=== PATIENT | female | born 1990 | race Caucasian/White ===

== ENCOUNTER 2020-07-24 10:05 | Day surgery (SDC) | payer OTHER ==
[~2020-07-24] VITALS: Ht 165.1 cm; Wt 67.9 kg
[~2020-07-24 10:05] MED LIST: ACETAMINOPHEN *IV* 1,000 MG IV ONE; LR 1,000 ML IV ONE; SCOPOLAMINE 1MG TRANSDERMAL PATCH TOP ONE
[2020-07-24 10:40] LABS: HEMATOCRIT 38.2 % (36.0-47.0); HEMOGLOBIN 12.8 g/dl (12.0-15.5); MEAN CORPUSCULAR HEMOGLOBIN 31.4 pg (27.0-33.0); MEAN CORPUSCULAR HGB CONC 33.5 g/dl (32.0-36.5); MEAN CORPUSCULAR VOLUME 93.6 fl (80.0-96.0); PLATELET COUNT, AUTOMATED 195 10^3/uL (150-450); RED BLOOD COUNT 4.08 10^6/uL (4.00-5.40); WHITE BLOOD COUNT 3.5 10^3/uL (4.0-10.0)
[2020-07-24] MEDS ORDERED: propofoL 200 MG/20 ML VIAL As Ordered ONE (10:44)
[2020-07-24] MEDS ORDERED: fentaNYL 100 MCG/2 ML INJECTION (J3010) As Ordered ONE (10:44)
[2020-07-24] MEDS ORDERED: MIDAZOLAM INJ 2MG/2ML VIAL (J2250 PER 1MG) As Ordered ONE (10:45)
[2020-07-24] MEDS ORDERED: LIDOCAINE 2% 100MG/5ML SDV (FOR ANES.) As Ordered ONE (10:45)
[2020-07-24 10:59] LABS: ALBUMIN 3.9 GM/DL (3.2-5.2); ALT/SGPT 12 U/L (12-78); BILIRUBIN,TOTAL 0.7 MG/DL (0.2-1.0); BLOOD UREA NITROGEN 7 MG/DL (7-18); CALCIUM LEVEL 8.6 MG/DL (8.5-10.1); CARBON DIOXIDE LEVEL 28 MEQ/L (21-32); CHLORIDE LEVEL 110 MEQ/L (98-107); CREATININE FOR GFR 0.82 MG/DL (0.55-1.30); GLOMERULAR FILTRATION RATE > 60.0 (>60); GLUCOSE, FASTING 89 MG/DL (70-100); SODIUM LEVEL 142 MEQ/L (136-145)
[2020-07-24] MEDS ORDERED: ONDANSETRON 4MG/2ML VIAL As Ordered ONE (11:10)
[2020-07-24] MEDS ORDERED: LIDOCAINE 1% MDV 20ML VIAL As Ordered ONE (11:32)
[2020-07-24] MEDS ORDERED: GLYCOPYRROLATE INJ 0.2 MG/ML 2 ML VIAL As Ordered ONE (11:33)
[2020-07-24] MEDS ORDERED: ATROPINE SULF 0.4 MG/ML 1ML VIAL (J0461) As Ordered ONE (11:48)
[2020-07-24] MEDS ORDERED: SILVER NITRATE APPLICATOR As Ordered ONE (12:00)
--- NOTE | 2020-07-24 12:34 | ROOPDOC ---
[facility] Report Of Operation Report of Operation DATE OF PROCEDURE: 07/24/20 PREPROCEDURE DIAGNOSES: primary infertility, endometrial polyp POSTPROCEDURE DIAGNOSES: primary infertility, endometrial polyp PROCEDURE: hysteroscopic polypectomy SURGEON: Jean-Pierre Suarez DO SHOE FITTER: none ANESTHESIA: Sedation, local ESTIMATED BLOOD LOSS: Approximately 5 mL. COMPLICATIONS: none REMARKS: none PROCEDURE NOTE: The risks, benefits and alternatives of the procedure were discussed and written consent was obtained. The patient was taken to the OR where she was sedated and positioned in low lithotomy in the yellow fins with her arms out. The vagina and perineum were prepped and draped in a sterile fashion. A final time out was performed. The bladder was drained and an operative speculum was placed in the vagina. The anterior lip of the cervix was grasped with a single tooth tenaculum. 5cc of lidocaine were injected on each side at approx 4 and 7 o clock at the cervicovaginal junction to achieve a cervical block. The uterus was sounded to 8cm. The cervix was then dilation to 15F with hanks dilators. The myosure scope was then introduced to the fundus. Proliferative endometrium was noted. The right tubal ostea was clearly visualized. The left tubal ostea was obstructed by a polyp with a wide base emerging from the left lateral uterine wall. Using the myosure light the polyp was removed. While the ostea indentation could be seen post-removal, the area appeared scarred. The surgical site was noted to be hemostatic. The polypoid tissue was sent for pathology. The myosure and single tooth tenaculum were removed. The puncture site was hemostatic with the aid of silver nitrate. The operative speculum was removed. A vaginal sweep was performed. The sponge, lap, and needle count was correct x2. The patient tolerated the procedure well and there were no complications. She was transferred to recovery in stable condition. JEAN-PIERRE SUAREZ DO Jul 24, 2020 12:34
[2020-07-24 13:30] VITALS: BP 109/71
--- NOTE | 2020-07-24 14:09 | IPNPDOC ---
Date Seen The patient was seen on 07/24/20. Progress Note [facility] [id number] [place] [address] [facility]ID-OB MEMORANDUM FOR: Margi Finney DATE: 07/24/2020 SUBJECT: convalescent leave 1. a member of your unit is recommended for convalescent leave. This leave is necessary in the care and treatment precscribed for the member's recuperation and convalescence. A DA form 31 must be p repared. 2. recommended leave should be approved for 07/24/2020 to 07/29/2020 Dr. Reginald Suarez DO [facility]. Dr OBGYN VS, I&O, 24H, Fishbone Vital Signs/I&O Vital Signs Date Time Temp Pulse Resp B/P (MAP) Pulse Ox O2 Delivery O2 Flow Rate FiO2 07/24/20 10:40 98.0 52 18 102/70 (81) 99 Room Air Laboratory Data 24H LABS Laboratory Tests 2 07/24/20 10:23: Nucleated Red Blood Cells % (auto) 0.0, Anion Gap 4L, Glomerular Filtration Rate > 60.0, Calcium Level 8.6, Total Bilirubin 0.7, Aspartate Amino Transf (AST/SGOT) 16, Alanine Aminotransferase (ALT/SGPT) 12, Alkaline Phosphatase 44L, Total Protein 7.0, Albumin 3.9, Albumin/Globulin Ratio 1.3 CBC/BMP Laboratory Tests 07/24/20 10:23 REGINALD SUAREZ DO Jul 24, 2020 14:09
[2020-07-25] MEDS ORDERED: IBUPROFEN 800 MG TAB PO SCH (15:00)
== END 2020-07-24 14:25 | disposition home or self-care (01) ==
LOC: M SDC 10:05
PROVIDERS: ATTEND Obstetrics & Gynecology
DX: N97.9 Female infertility, unspecified (principal); N84.0 Polyp of corpus uteri
CPT/HCPCS: 36415; 58558; 80053; 81025; 85027; 86850; 86900; 86901; 88305; J0461; J2250; J2405; J3010

== ENCOUNTER 2021-05-16 10:16 | Emergency (ER) | payer OTHER ==
[~2021-05-16] VITALS: Ht 165.1 cm; Wt 64.4 kg
--- NOTE | 2021-05-16 11:49 | REP ---
INDICATION: green nal syndrome/remedios lesion COMPARISON: None. TECHNIQUE: AP, lateral, bilateral oblique views left 1st digit. FINDINGS: The osseous structures and joint spaces are intact and normal. There is no evidence for acute fracture or dislocation. Oblique and lateral views suggest soft tissue swelling along the volar aspect overlying the distal phalanx. IMPRESSION: Focal soft tissue swelling overlying the distal phalanx. No acute fracture or dislocation. <Electronically signed by Gigi Love > 05/16/21 [id number]
[2021-05-16] MEDS ORDERED: CIPROFLOXACIN 500MG TABLET PO ONE (13:15)
[2021-05-16] MEDS ORDERED: CIPR-249 PO (13:27)
[2021-05-16 13:29] VITALS: BP 110/69
== END 2021-05-16 13:40 | disposition left against medical advice (07) ==
LOC: M ED 10:16
DX: L03.012 Cellulitis of left finger (principal); L08.9 Local infection of the skin and subcutaneous tissue, unspecified; L60.9 Nail disorder, unspecified

== ENCOUNTER 2022-08-10 22:34 | Inpatient (IN) | payer OTHER ==
[~2022-08-10] VITALS: Ht 165.1 cm; Wt 92.1 kg
[~2022-08-10 22:34] MED LIST changes: -ACETAMINOPHEN *IV* 1,000 MG IV ONE; +CIPR-249 PO; -LR 1,000 ML IV ONE; -SCOPOLAMINE 1MG TRANSDERMAL PATCH TOP ONE
[2022-08-10] MEDS ORDERED: HOME MED LIST COMPLETE! XX SCH (22:50)
[2022-08-10 22:54] VITALS: BP 120/66
[2022-08-10] MEDS ORDERED: METHYLERGONOVINE MALEATE 0.2 MG/ML VIAL (J2210) IM PRN (23:35)
[2022-08-10] MEDS ORDERED: TRANEXAMIC ACID INJection 1,000 MG in NS 100 ML IV PRN (23:35)
[2022-08-10] MEDS ORDERED: LACTATED RINGER'S 1000 ML IV ONE (23:35)
[2022-08-10] MEDS ORDERED: OXYTOCIN INJ 10 UNITS/ML VIAL (J2590) IV PRN (23:35)
[2022-08-10] MEDS ORDERED: OXYTOCIN DRIP 30 UNITS in IV 1 EA IV PRN ×4 (23:35)
[2022-08-10 23:52] LABS: HEMATOCRIT 33.9 % (36.0-47.0); HEMOGLOBIN 11.5 g/dl (12.0-15.5); MEAN CORPUSCULAR HGB CONC 33.9 g/dl (32.0-36.5); MEAN CORPUSCULAR VOLUME 85.4 fl (80.0-96.0); PLATELET COUNT, AUTOMATED 205 10^3/uL (150-450); RED BLOOD COUNT 3.97 10^6/uL (4.00-5.40)
[2022-08-11] VITALS (22 sets, daily range): BP systolic 88–118; BP diastolic 46–69
[2022-08-11] MEDS ORDERED: EPIDURAL/PCA KEYS XX PRN (00:40)
[2022-08-11] MEDS ORDERED: diphenhydrAMINE 50MG/ML VIAL (J1200) IV PRN ×2 (00:40→06:50)
[2022-08-11] MEDS ORDERED: ONDANSETRON 4MG 2ML VIAL IV PRN ×2 (00:40→06:50)
[2022-08-11] MEDS ORDERED: LR 500 ML IV PRN (00:40)
[2022-08-11] MEDS ORDERED: FENTANYL/ROPIVACAINE/NACL BAG 100 ML EPIDURAL SCH (00:40)
[2022-08-11] MEDS ORDERED: NALOXONE INJ 0.4MG/1ML VIAL (J2310 PER 1MG) IV PRN ×3 (00:40→06:50)
[2022-08-11] MEDS ORDERED: FENTANYL 2MCG/ML ROPIVACAINE 0.2% IN 0.9% NACL 100ML IVBAG As Ordered ONE (00:44)
[2022-08-11] MEDS: LR 1,000 ML IV SCH ×3 (01:13→05:25)
[2022-08-11] MEDS: ePHEDrine SULFATE 25 MG/5 ML(5MG/ML) SYRINGE IVP PRN ×2 (02:14→02:15)
[2022-08-11] MEDS ORDERED: BUPIVACAINE HCL 0.25% 10ML VIAL SC ONE (05:20)
[2022-08-11] MEDS ORDERED: OXYTOCIN DRIP 30 UNITS in IV 1 EA IV PRN ×4 (05:20)
[2022-08-11] MEDS ORDERED: TRANEXAMIC ACID INJection 1,000 MG in NS 100 ML IV PRN (05:20)
[2022-08-11] MEDS ORDERED: BICITRA 30ML SOLN UDC PO ONE (05:20)
[2022-08-11] MEDS ORDERED: OXYTOCIN INJ 10 UNITS/ML VIAL (J2590) IV PRN (05:20)
[2022-08-11] MEDS ORDERED: ceFAZolin SOD 2 GM in IV 1 EA IV ONE (05:20)
[2022-08-11] MEDS ORDERED: AZITHROMYCIN INJ 500 MG, VIAL MATE ADAPTER 1 EACH in NS 250 ML IV ONE (05:20)
[2022-08-11] MEDS ORDERED: ACETAMINOPHEN 650 MG SUPP PR ONE (05:20)
[2022-08-11] MEDS ORDERED: ONDANSETRON 4MG 2ML VIAL As Ordered ONE (05:57)
[2022-08-11] MEDS ORDERED: OXYTOCIN INJ 10 UNITS/ML VIAL (J2590) As Ordered ONE (05:57)
[2022-08-11] MEDS ORDERED: MORPHINE PRES-FREE INJ 10 MG/10 ML VIAL As Ordered ONE (05:57)
[2022-08-11] MEDS ORDERED: LIDOCAINE 2% W/EPINEPHRINE 20ML VIAL **PRES FREE As Ordered ONE (05:57)
[2022-08-11] MEDS ORDERED: PHENYLephrine 500MCG 5ML (100MCG/ML) SYRINGE As Ordered ONE (06:00)
[2022-08-11 06:17] LABS: CORD GAS ABE V -3.8; CORD GAS HCO3 V 22.8 MEQ/L; CORD GAS O2 SAT V 48.1 %; CORD GAS PCO2 V 47.2 mmHg; CORD GAS PH V 7.301 UNITS; CORD GAS PO2 V 21.8 mmHg; CORD GAS SBC V 20.2 MEQ/L; CORD GAS TCO2 V 24.2 MEQ/L
[2022-08-11 06:18] LABS: CORD GAS ABE A -5.5; CORD GAS HCO3 A 22.2 MEQ/L; CORD GAS O2 SAT A 25.2 %; CORD GAS PCO2 A 53.1 mmHg; CORD GAS PH A 7.24 UNITS; CORD GAS PO2 A 15.4 mmHg; CORD GAS SBC A 18.5 MEQ/L; CORD GAS TCO2 A 23.9 MEQ/L
[2022-08-11] MEDS ORDERED: KETOROLAC 60MG 2ML VIAL As Ordered ONE (06:26)
[2022-08-11] MEDS ORDERED: ACETAMINOPHEN 500 MG TAB PO PRN (06:45)
[2022-08-11] MEDS ORDERED: MOM 30ML SUSPENSION UDC PO PRN (06:45)
[2022-08-11] MEDS ORDERED: ACETAMINOPHEN TAB 650MG DOSE (2X325MG) PO PRN (06:45)
[2022-08-11] MEDS ORDERED: DOCUSATE SODIUM 100MG CAPSULE PO PRN (06:45)
[2022-08-11] MEDS ORDERED: PERCOCET 5MG/325MG TAB PO PRN ×2 (06:45)
[2022-08-11] MEDS ORDERED: METHYLERGONOVINE MALEATE 0.2 MG/ML VIAL (J2210) IM PRN (06:45)
[2022-08-11] MEDS ORDERED: OXYTOCIN INJ 10 UNITS/ML VIAL (J2590) IV ONE (06:45)
[2022-08-11] MEDS ORDERED: OXYTOCIN DRIP 30 UNITS in IV 1 EA IV SCH ×4 (06:45)
[2022-08-11] MEDS ORDERED: RHOGAM 300 MCG (1500 IU) INJ (J2790) IM SCH (06:45)
[2022-08-11] MEDS ORDERED: SIMETHICONE 80MG CHEW TAB PO PRN (06:45)
[2022-08-11] MEDS ORDERED: LR 1,000 ML IV SCH (06:45)
[2022-08-11] MEDS ORDERED: ANUSOL HC CREAM 30GM TOP PRN (06:45)
[2022-08-11] MEDS ORDERED: METHYLERGONOVINE MALEATE 0.2 MG TAB PO PRN (06:45)
[2022-08-11] MEDS ORDERED: oxyCODONE 5MG TAB PO PRN (06:50)
[2022-08-11] MEDS ORDERED: METOCLOPRAMIDE INJ 10MG/2ML VIAL (J2765 PER 1) IV PRN (06:50)
[2022-08-11] MEDS ORDERED: HYDROMORPHONE HCL 0.5 MG/ 0.5 ML SYRINGE (J1170 PER 1) IV PRN (06:50)
[2022-08-11] MEDS ORDERED: MEPERIDINE INJ 25 MG/ML VIAL (J2175) IV PRN (06:50)
[2022-08-11] MEDS ORDERED: fentaNYL 100 MCG/2 ML INJECTION IV PRN (06:50)
[2022-08-11] MEDS ORDERED: **NOTE PATIENT COMMENT** MISC XX SCH (06:50)
[2022-08-11] MEDS ORDERED: OXYTOCIN 30 UNITS IN 0.9% NaCl 500ML IV BAG (J2590) As Ordered ONE (07:41)
[2022-08-11] MEDS: SLF 3 ML SYR IV SCH ×2 (07:58→16:31)
[2022-08-11] MEDS: PRENATAL VITAMINS CHEWABLE TABLET PO SCH (09:00)
[2022-08-11] MEDS: KETOROLAC 30 MG/ML 1ML VIAL IV SCH ×2 (13:33→18:19)
[2022-08-12] MEDS: SLF 3 ML SYR IV SCH (01:34)
[2022-08-12] MEDS: KETOROLAC 30 MG/ML 1ML VIAL IV SCH (01:34)
[2022-08-12 02:15] VITALS: BP 95/53
[2022-08-12 06:17] VITALS: BP 95/58
[2022-08-12 08:26] LABS: HEMATOCRIT 29.4 % (36.0-47.0); HEMOGLOBIN 9.6 g/dl (12.0-15.5); MEAN CORPUSCULAR HEMOGLOBIN 28.8 pg (27.0-33.0); MEAN CORPUSCULAR HGB CONC 32.7 g/dl (32.0-36.5); MEAN CORPUSCULAR VOLUME 88.3 fl (80.0-96.0); PLATELET COUNT, AUTOMATED 162 10^3/uL (150-450); RED BLOOD COUNT 3.33 10^6/uL (4.00-5.40); WHITE BLOOD COUNT 7.3 10^3/uL (4.0-10.0)
[2022-08-12] MEDS ORDERED: IBUPROFEN 600MG TAB PO PRN (09:00)
[2022-08-12] MEDS: PRENATAL VITAMINS CHEWABLE TABLET PO SCH (09:29)
[2022-08-12 10:00] VITALS: BP 92/56
[2022-08-12 14:00] VITALS: BP 98/52
[2022-08-12 18:00] VITALS: BP 98/56
[2022-08-12 22:00] VITALS: BP 85/47
[2022-08-13 02:00] VITALS: BP 120/70
[2022-08-13 05:35] VITALS: BP 105/58
[2022-08-13] MEDS ORDERED: ACET1TAB55 PO (05:53)
[2022-08-13] MEDS ORDERED: IBUP-1022 PO (05:53)
[2022-08-13] MEDS ORDERED: PERCOCET PO (05:53)
[2022-08-13] MEDS ORDERED: MEASLES,MUMPS,RUBELLA VACCINE INJ (MMR-II) (90707) SC.IMMUN ONE (09:00)
[2022-08-13] MEDS: PRENATAL VITAMINS CHEWABLE TABLET PO SCH (09:51)
== END 2022-08-13 14:52 | disposition home or self-care (01) | DRG 773 ==
LOC: M LDO 22:34 → M LDI 23:12 → M OBS 08-11 08:50
PROVIDERS: ADMIT Obstetrics & Gynecology; ATTEND Obstetrics & Gynecology
PROC: 10D00Z1 Extraction of Products of Conception, Low, Open Approach (ICD-10-PCS; principal; 2022-08-11 06:00)
DX: O65.4 Obstructed labor due to fetopelvic disproportion, unspecified (principal); Z37.0 Single live birth; Z3A.39 39 weeks gestation of pregnancy; O32.4XX0 Maternal care for high head at term, not applicable or unspecified